=== PATIENT | female | born 1990 | race Caucasian/White ===

== ENCOUNTER 2017-04-29 15:32 | Emergency (ER) | payer OTHER ==
[~2017-04-29] VITALS: Ht 170.2 cm; Wt 90.7 kg
[2017-04-29 16:08] LABS: *BILIRUBIN,URIN NEGATIVE (NEGATIVE); *BLOOD, URINE NEGATIVE (NEGATIVE); *COLOR,URINE YELLOW (YELLOW); *KETONES,URINE NEGATIVE (NEGATIVE); *PROTEIN,URINE NEGATIVE (NEGATIVE); *UROBILINOGEN,URINE 0.2 E.U./dl (NORMAL); LEUKOCYTE ESTERASE ,URINE NEGATIVE (NEGATIVE); NITRITE, URINE NEGATIVE (NEGATIVE); PH,URINE 7.5 (5.0-8.0); UGLUCOSE NEGATIVE (NEGATIVE)
[2017-04-29 16:11] LABS: BASOPHILS # (AUTO) 0.1 K/uL (0.0-8.0); BASOPHILS % (AUTO) 0.7 % (0.0-2.0); EOSINOPHILS # (AUTO) 0.2 K/uL (0.0-0.7); EOSINOPHILS % (AUTO) 2.2 % (0.0-7.0); HEMATOCRIT 40.6 % (37-47); HEMOGLOBIN 13.7 G/DL (12.0-16.0); LYMPHOCYTES # (AUTO) 2.6 K/UL (0.8-4.8); LYMPHOCYTES % (AUTO) 34.2 % (20.5-51.5); MEAN CORPUSCULAR HEMOGLOBIN 29.8 UUG (27.0-31.0); MEAN CORPUSCULAR HGB CONC 34 g/dL (32.0-37.0); MEAN CORPUSCULAR VOLUME 88.3 FL (81.0-99.0); MONOCYTES # (AUTO) 0.7 K/UL (0.1-1.30); MONOCYTES % (AUTO) 8.8 % (0.0-11.0); NEUTROPHILS # (AUTO) 3.9 K/UL (1.8-8.9); NEUTROPHILS % (AUTO) 54.1 % (38.5-71.5); PLATELET COUNT (AUTO) 300 K/UL (150-450); WHITE BLOOD COUNT (AUTO) 7.5 K/UL (4.0-11.2)
[2017-04-29 16:12] LABS: *URINE HCG, QUAL NEGATIVE (NEGATIVE)
--- NOTE | 2017-04-29 16:15 | NUR ---
PT IS IN ROOM #1B. DR LOTT EVALUATED THE PT.
[2017-04-29 16:16] LABS: CREATININE 0.7 mg/dL (0.6-1.3); POTASSIUM 4.2 mmol/L (3.5-5.1)
[2017-04-29 16:21] LABS: BILIRUBIN,DIRECT 0.1 mg/dL (0.0-0.2); BILIRUBIN,TOTAL 0.3 mg/dL (0.2-1.0); TOTAL PROTEIN, SERUM 7.8 g/dL (6.4-8.2)
[2017-04-29 16:25] LABS: *CLARITY,URINE HAZY (CLEAR); BACTERIA,URINE FEW /HPF (NONE SEEN); MUCUS,URINE MODERATE /LPF (0-FEW); SQUAMOUS EPITHELIAL CELL,UR MODERATE /HPF (NONE SEEN); WBC,URINE 0-3 /HPF (0-3)
[2017-04-29 17:27] VITALS: BP 129/68
--- NOTE | 2017-04-29 17:27 | NUR ---
PT WAS D/C TO HOME. D/C INSTRUCTIONS GIVEN TO THE PT.
== END 2017-04-29 17:28 | disposition home or self-care (01) ==
LOC: ER 15:32
DX: M54.6 Pain in thoracic spine (principal); F41.9 Anxiety disorder, unspecified
CPT/HCPCS: 36415; 71010; 84703; 85025; 85730; 93005; A4663

== ENCOUNTER 2019-09-21 04:30 | Emergency (ER) | payer BC, OTHER ==
[~2019-09-21] VITALS: Ht 170.2 cm; Wt 102.1 kg
--- NOTE | 2019-09-21 04:55 | NUR ---
MSE COMPLETED, PT D/C'D HOME, ACI/RX X1 GIVEN. PT AMBULATED W/O DIFF TOOK ALL BELONGINGS.
[2019-09-21 04:57] VITALS: BP 111/68
== END 2019-09-21 04:58 | disposition home or self-care (01) ==
LOC: ER 04:36
DX: J20.9 Acute bronchitis, unspecified (principal); F41.9 Anxiety disorder, unspecified
CPT/HCPCS: A4663

== ENCOUNTER 2024-07-06 16:12 | Emergency (ER) | payer BC, OTHER ==
[~2024-07-06] VITALS: Ht 167.6 cm; Wt 99.8 kg
[2024-07-06] MEDS ORDERED: SULF1TAB48 PO (18:05)
[2024-07-06] MEDS ORDERED: SULFAMETH/TRIMETH 800/160 MG TABLET ONE (18:10)
[2024-07-06] MEDS: SULFAMETH/TRIMETH 800/160 MG TABLET PO ONE (18:11)
[2024-07-06 18:13] VITALS: BP 110/77; TEMP 98; O2SAT 98
== END 2024-07-06 18:13 | disposition home or self-care (01) ==
LOC: ER 16:13
DX: N61.1 Abscess of the breast and nipple (principal); Z79.899 Other long term (current) drug therapy
CPT/HCPCS: A4606; A4663